=== PATIENT | male | born 1950 | race Caucasian/White ===

== ENCOUNTER 2019-05-01 04:36 | Emergency (ER) | payer OTHER ==
[2019-05-01] MEDS ORDERED: NA CHLORIDE 0.9% 1,000 ML ONE (05:30)
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
[2019-05-01 05:52] LABS: Protime INR 3.59
[2019-05-01 05:58] LABS: Absolute Lymphocytes (CBC) 0.8 K/uL (0.7-4.9); Basophils % 0.6 % (0-1.3); Hematocrit 25.7 % (39.6-49.0); Lymphocytes % 9.6 % (15.3-44.8); MPV 7.5 fL (7.6-11.3); RBC Red Blood Cell Count 2.35 M/uL (4.33-5.43)
[2019-05-01] MEDS ORDERED: NA CHLORIDE 0.9% 100 ML IV ONE (06:02)
[2019-05-01] MEDS ORDERED: FOSPHENYTOIN PE 500 MG/10 ML VIAL ONE (06:04)
[2019-05-01 06:12] LABS: Potassium 3.4 mmol/L (3.5-5.1)
[2019-05-01 06:13] LABS: Albumin 2.4 g/dL (3.4-5.0); Bilirubin Direct 9.8 mg/dL (0-0.2); Magnesium 2.1 mg/dL (1.8-2.4); Protein, Total 6.2 g/dL (6.4-8.2); Troponin (Emerg Dept Use Only) 0.04 ng/mL (0.0-0.045)
[2019-05-01 06:15] LABS: Bilirubin Total 17.2 mg/dL (0.2-1.0)
[2019-05-01] MEDS ORDERED: LACTULOSE 20 GM/30 ML UCUP ONE (07:22)
[2019-05-01] MEDS ORDERED: VANCOMYCIN/NS 1 gm 1 GM/250 ML BAG IV ONE (07:30)
[2019-05-01 07:46] LABS: Anisocytosis 1+; Blood Morphology Comment NOTED (NOT SEEN); Burr Cells 1+; Macrocytosis 1+; Platelet Estimate DECR
[2019-05-01 07:59] VITALS: TEMP 97.9
[2019-05-01 08:02] VITALS: BP 108/79; O2SAT 98
--- NOTE | 2019-05-01 09:02 | RAD REPORT ---
EXAM DESCRIPTION: Addy Single View05/01/2019 6:03 am CLINICAL HISTORY: Chest pain COMPARISON: 2009 FINDINGS: Small to moderate left pleural effusions suspected. Left basilar opacities. Right lung is clear. Heart is normal size IMPRESSION: Small to moderate left pleural effusions suspected Left basilar opacities may represent pneumonia/atelectasis and should be followed until they have priti ared
--- NOTE | 2019-05-01 09:57 | EKG ---
Test Date: 2019-05-01 Test Time: 04:47:15 Pharmacy Operations Specialist: MICHEL MEASUREMENT RESULTS: Intervals: Rate: 126 UT: 120 QRSD: 66 QT: 310 QTc: 448 [place]: P: 37 UT: 120 QRS: 30 T: 27 INTERPRETIVE STATEMENTS: Sinus tachycardia with premature supraventricular complexes and with occasional premature ventricular complexes Nonspecific ST and T wave abnormality Abnormal ECG Compared to ECG 12/24/2011 14:11:30 Atrial premature complex(es) now present Ventricular premature complex(es) now present ST (T wave) deviation now present Electronically Signed On 05-01-19 09:57:01 CDT by Zane Kaiser
--- NOTE | 2019-05-01 10:48 | RAD REPORT ---
EXAM DESCRIPTION: Ct Stroke Brain Wo Cont - 05/01/2019 6:50 am CLINICAL HISTORY: UNABLE TO MOVE RIGHT ARM / CONFUSED COMPARISON: None available TECHNIQUE: Axial CT of the head obtained from the skull apex to the skull base without contrast. FINDINGS: Acute on subacute or chronic left convexity subdural hematoma measuring 1.3 cm in greatest width producing effacement of the sulcal spaces and 3 mm of [id number] midline shift. The ventric ular system and sulcal spaces are mildly enlarged compatible with mild cerebral atrophy. Scattered areas of hypodensity throughout the supratentorial white matter are nonspecific and may be related to chronic small vessel ischemic change. The visualized paranasal sinuses and the mastoids are clear. Prior right craniotomy. Visualized orbits and globes are unremarkable. IMPRESSION: 1. Acute on subacute or chronic left convexity subdural hematoma measuring 1.3 cm in g reatest width with local mass effect producing effacement of the sulcal spaces as well as 3 mm left-t o-right midline shift. Urgent finding reported to Dr. Sanz at 05/01/2019 5:33 AM CDT This exam was performed according to our departmental dose-optimization program, which includes autom ated exposure control, adjustment of the mA and/or kV according to patient size and/or use of iterati ve reconstruction technique. Electronically signed by: Mitch Melchor 05/01/2019 5:36 AM CDT Due to temporary technical issues with the PACS/Fluency reporting system, reports are being signed by the in house radiologist as a courtesy to ensure prompt reporting. The interpreting radiologist is f ully responsible for the content of the report.
== END 2019-05-01 12:52 | disposition short-term general hospital (02) ==
LOC: ER 04:36
DX: I62.01 Nontraumatic acute subdural hemorrhage (principal)
CPT/HCPCS: 96365; 96361; 93005; 87040 ×2; 85025; 80048; 36415; 82140; 83735; 85610; 82947; 80076; 83605; 84484; 83690; 84145; 83880; 70450; 71045; 96375; 99285; Q2009; J3370; J7030